=== PATIENT | male | born 1995 | race Caucasian/White ===

== ENCOUNTER 2023-01-09 21:42 | Emergency (ER) | payer SELFPAY ==
[~2023-01-09] VITALS: Ht 177.8 cm; Wt 73.0 kg
[2023-01-09 21:48] VITALS: BP 134/77; PULSE 108; RESP 22; TEMP 98.6; O2SAT 97
== END 2023-01-09 22:39 | disposition left against medical advice (07) ==
LOC: ER 21:42
DX: T65.91XA Toxic effect of unspecified substance, accidental (unintentional), initial encounter (principal); Z53.21 Procedure and treatment not carried out due to patient leaving prior to being seen by health care provider; Y92.89 Other specified places as the place of occurrence of the external cause
CPT/HCPCS: 99281